=== PATIENT | male | born 1935 | race Caucasian/White ===

== ENCOUNTER 2016-11-03 14:18 | Inpatient (IN) | payer MEDICARE, OTHER ==
[2016-11-03 14:39] LABS: Hematocrit 51 % (42-52); Hemoglobin 16.7 g/dl (14.0-18.0); Mean Corpuscular HGB Conc 33 g/dl (31-36); Mean Corpuscular Hemoglobin 31 pg (27-31); Mean Corpuscular Volume 94 fL (80-94); Mean Platelet Volume 9 um3 (7.4-10.4); Red Blood Count 5.41 10^6/ul (4.0-5.4); Red Cell Distribution Width 15 % (10.5-15); White Blood Count 8.4 10^3/ul (3.5-10.8)
[2016-11-03] MEDS ORDERED: Magnesium Sulfate 2 GM IV* 2 GM/50 ML BAG IVPB ONE (14:52)
[2016-11-03] MEDS ORDERED: Amiodarone 360 MG IVPREMIX* 360 MG/200 ML BAG IV ONE (14:55)
[2016-11-03 14:59] LABS: Albumin 4.2 g/dL (3.2-5.2); BUN/Creatinine Ratio 20.2 (8-20); Calcium 9.9 mg/dL (8.6-10.3); EGFR African American 93.5 (>60); EGFR Non-African American 72.7 (>60); Magnesium 1.9 mg/dL (1.9-2.7); Potassium 4.8 mmol/L (3.5-5.0); Total Bilirubin 1.7 mg/dL (0.2-1.0); Total Protein 7.2 g/dL (6.4-8.9)
--- NOTE | 2016-11-03 15:01 | ED ---
HPI Cardiac - HPI Summary HPI Summary: Pt presents by EMS. 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 Pt care is through [facility] and [facility]. Pt states he woke approx 2 am with discomfort and "funny feeling" in his chest. Pt states he progressively felt SOB and "it got bad" so notified who called EMS. pt found in [facility] by EMS - rate 150. Pt was given 2 boluses (150mg each) of amiodarone with conversion. Pt states feels better at time of presentation. pt denies cp, sob. No n/v. Pt did not take his meds this morning, but took all medication yesterday. Pt states is on Eliquis. - History of Current Complaint Chief Complaint: EDDysrhythmPalp Stated Complaint: RAPID HEART RATE Time Seen by Provider: 11/03/16 14:32 Hx Obtained From: Patient, Family/Trim Machine Operator, EMS Onset/Duration: Started Hours Ago Timing: Constant Initial Severity: Moderate Current Severity: None Chest Pain Radiates: No Aggravating Factor(s): Nothing Alleviating Factor(s): Nothing Associated Signs and Symptoms: Positive: Chest Pain. Negative: Diaphoresis, Nausea, Cough - Allergy/Home Medications Allergies/Adverse Reactions: Allergies Allergy/AdvReac Type Severity Reaction Status Date / Time No Known Allergies Allergy Verified 11/03/16 14:25 PMH/Surg Hx/FS Hx/Imm Hx Endocrine/Hematology History: Reports: Hx Anticoagulant Therapy Cardiovascular History: Reports: Hx Hypercholesterolemia, Hx Hypertension Respiratory History: Denies: Hx Asthma, Hx Chronic Obstructive Pulmonary Disease (COPD) Musculoskeletal History: Denies: Hx Arthritis Neurological History: Denies: Hx CVA Psychiatric History: Denies: Hx Anxiety Infectious Disease History: No Infectious Disease History: Denies: Traveled Outside the [place] in Last 30 Days - Social History Alcohol Use: None Substance Use Type: Reports: None Smoking Status (MU): Former Smoker Review of Systems Constitutional: Negative Eyes: Negative ENT: Negative Cardiovascular: Negative Positive: Chest Pain. Negative: Palpitations Positive: Shortness Of Breath Gastrointestinal: Negative Genitourinary: Negative Musculoskeletal: Negative Skin: Negative Neurological: Negative Negative: Weakness Psychological: Normal All Other Systems Reviewed And Are Negative: Yes Physical Exam Triage Information Reviewed: Yes Vital Signs On Initial Exam: Initial Vitals Temp Pulse Resp BP Pulse Ox 97.9 F 79 23 186/133 99 11/03/16 14:25 11/03/16 14:25 11/03/16 14:25 11/03/16 14:25 11/03/16 14:25 Vital Signs Reviewed: Yes Appearance: Positive: Well-Appearing, No Pain Distress, Well-Nourished Skin: Positive: Warm, Skin Color Reflects Adequate Perfusion, Dry Head/Face: Positive: Normal Head/Face Inspection Eyes: Positive: Normal ENT: Positive: Pharynx normal, TMs normal Neck: Positive: Supple, Nontender, No Lymphadenopathy Respiratory/Lung Sounds: Positive: Clear to Auscultation Cardiovascular: Positive: Normal, RRR, Murmur, Other - 1+ edema b/l LE Abdomen Description: Positive: Nontender, No Organomegaly, Soft Bowel Sounds: Positive: Present Musculoskeletal: Positive: Normal, Strength/ROM Intact Neurological: Positive: Normal, Alert, Oriented to Person Place, Time Diagnostics - Vital Signs Vital Signs Temp Pulse Resp BP Pulse Ox 11/03/16 14:33 78 23 180/115 98 11/03/16 14:27 21 11/03/16 14:26 186/133 11/03/16 14:25 97.9 F 79 23 186/133 99 - Laboratory Lab Results: Lab Results 11/03/16 Range/Units 14:32 WBC 8.4 (3.5-10.8) 10^3/ul RBC 5.41 H (4.0-5.4) 10^6/ul Hgb 16.7 (14.0-18.0) g/dl Hct 51 (42-52) % MCV 94 (80-94) fL MCH 31 (27-31) pg MCHC 33 (31-36) g/dl RDW 15 (10.5-15) % Plt Count 131 L (150-450) 10^3/ul MPV 9 (7.4-10.4) um3 Neut % (Auto) 85.1 H (38-83) % Lymph % (Auto) 7.5 L (25-47) % Kemper % (Auto) 6.6 (1-9) % Eos % (Auto) 0.5 (0-6) % Baso % (Auto) 0.3 (0-2) % Absolute Neuts (auto) 7.2 (1.5-7.7) 10^3/ul Absolute Lymphs (auto) 0.6 L (1.0-4.8) 10^3/ul Absolute Monos (auto) 0.6 (0-0.8) 10^3/ul Absolute Eos (auto) 0 (0-0.6) 10^3/ul Absolute Basos (auto) 0 (0-0.2) 10^3/ul Absolute Nucleated RBC 0 10^3/ul Nucleated RBC % 0 Result Diagrams: 11/03/16 14:32 11/03/16 14:32 Lab Statement: Any lab studies that have been ordered have been reviewed, and results considered in the medical decision making process. - Radiology No standard instances Xray Interpretation: Positive (See Comments) - Patient Name: JAM MONROE Medical Record#: [id number] Ordering Physician: Natalia Tapia MD Acct.#: [id number] : 1935 Age: 81 Sex: M Location: EMERGENCY DEPARTMENT Exam Date: 11/03/16 1433 ADM Status: REG ER Order Information: CHEST AP PORTABLE Accession Number: [id number] CPT: 69454 HISTORY: Chest pain, rapid heart rate COMPARISONS: None VIEWS:1: Single frontal portable view of the chest at 2 :45 PM FINDINGS: LINES AND TUBES: A left-sided pacemaker is noted CARDIOMEDIASTINAL SILHOUETTE: The cardiac silhouette is enlarged. The cardiomediastinal silhouette is otherwise normal for portable technique. PLEURA : The costophrenic angles are sharp. No pleural abnormalities are noted. LUNG PARENCHYMA: The lungs are clear. ABDOMEN: The upper abdomen is clear. There is no subphrenic gas. BONES AND SOFT TISSUES: The patient is status post median sternotomy. IMPRESSION: CARDIOMEGALY <Electronically signed by Carlos Ledbetter MD in OV> 1502 Dictated By: Carlos Ledbetter MD Dictated Date/Time: 11/03/16 1502 Transcribed Date/Time: 11/03/16 1501 Copy to: [ rep ct ivnm] - EKG No standard instances Cardiac Rate: Other Rate - 14:18 paced, 84 review of pre-hospital strips reveal v tach Re-Evaluation - Re-Evaluation First Eval Re-Evaluation Time: 15:45 Change: Improved - pt sleeping VSS awaiting call back Dr. Gomez updated Disposition - Course Assessment/Plan: Pt presents s/p medical cardioversion with Vtach. Pt started with chest discomfort and sob at 2am. Pt without current complaints. Will check labs, CXR. continue with amiodarone drip. presumptively give mag. d/w card - Differential Dx - Cardiopulmonary Differential Diagnoses - Cardiopulmonary: Acute Coronary - Diagnoses Provider Diagnoses: Ventricular tachycardia - Physician Notifications Discussed Care Of Patient With: Dr Gomez paged [phone] - in procedure. 1600 d/w Dr. Gomez - will see pt. 1648 - Dr. Gomez d/w Dr. Rosas will admit Discharge - Discharge Plan Condition: Stable Disposition: ADMITTED TO [facility]
--- NOTE | 2016-11-03 15:05 | RAD ---
HISTORY: Chest pain, rapid heart rate COMPARISONS: None VIEWS:1: Single frontal portable view of the chest at 2:45 PM FINDINGS: LINES AND TUBES: A left-sided pacemaker is noted CARDIOMEDIASTINAL SILHOUETTE: The cardiac silhouette is enlarged. The cardiomediastinal silhouette is otherwise normal for portable technique. PLEURA: The costophrenic angles are sharp. No pleural abnormalities are noted. LUNG PARENCHYMA: The lungs are clear. ABDOMEN: The upper abdomen is clear. There is no subphrenic gas. BONES AND SOFT TISSUES: The patient is status post median sternotomy. IMPRESSION: CARDIOMEGALY
[2016-11-03 15:15] LABS: Troponin I 0.12 ng/mL (<0.04)
[2016-11-03 15:25] LABS: TSH (Thyroid Stimulating Horm) 1.49 mcIU/mL (0.34-5.60)
[2016-11-03 16:50] LABS: Digoxin 0.5 ng/ml (0.8-2.0)
[2016-11-03] MEDS ORDERED: Labetalol IV* 5 MG/ML 20 ML VIAL IV PUSH ONE (17:12)
[2016-11-03] MEDS ORDERED: Dextrose 50% Syringe 50 ML* 25 GM/50 ML SYRINGE IV PUSH PRN (17:40)
[2016-11-03 18:00] LABS: Troponin I 0.75 ng/mL (<0.04)
[2016-11-03] MEDS: Carvedilol TAB* 25 MG PO SCH (20:32)
--- NOTE | 2016-11-03 20:41 | CONS ---
CARDIOLOGY CONSULTATION: DATE OF CONSULTATION: 11/03/16 INDICATION FOR CONSULTATION: Ventricular tachycardia. HISTORY: The patient is an 81-year-old gentleman with a history of mitral valve surgery x3. He was brought to the emergency room because of ventricular tachycardia. The patient states he was at home. He was feeling unwell. He could not give a specific symptom. He did not have any lightheadedness or dizziness. He did not have any syncope. He denied any angina. He just did not feel well. He felt a little bit diaphoretic and slightly nauseous. This lasted for approximately an hour and then his decided to call the ambulance. On arrival of the ambulance, the patient was in monomorphic ventricular tachycardia at 180 beats per minute. The patient was awake and alert with that. The patient received 2 boluses of amiodarone of 150 mg each and converted to a paced rhythm at 70 beats per minute. The patient was then transferred to the emergency room. Since then, he has not had any symptoms. PAST MEDICAL HISTORY: The patient has had a mitral valve surgery. His first surgery was in 1999. He had a mitral valve replacement at that time secondary to endocarditis. He then had a dehiscence of his mitral valve and a repeat surgery in 2003 and another surgery in 2009. Before his mitral valve surgery in 2009, a cardiac catheterization showed no coronary artery disease. The patient has chronic atrial fibrillation. The patient has a pacemaker and with a [employer]tronic pacemaker. The generator was changed within the last 2 years. OUTPATIENT MEDICATIONS: 1. Eliquis 5 mg twice a day. 2. Lisinopril 20 mg a day. 3. Coreg 25 mg b.i.d. 4. Glyburide 4 mg a day. 5. Potassium 20 mEq a day. 6. Lasix 80 mg a day. 7. Digoxin 125 mcg a day. 8. Omeprazole 20 mg a day. 9. Allopurinol. ALLERGIES: No known drug allergies. SOCIAL HISTORY: He is . He is a retired pharmacist. He denies tobacco or alcohol use. FAMILY HISTORY: No family history of early coronary artery disease or cardiac arrhythmias. REVIEW OF SYSTEMS: Negative for changes in bowel or bladder. Negative for fevers. Negative for changes in weight. PHYSICAL EXAMINATION: Height is 5 feet 10 inches, weight is 225 pounds, heart rate is 70, blood pressure is 125/80, respiratory rate is 18, oxygen saturation 100% on 2 L. Sclerae anicteric. Oropharynx is pink without erythema. Carotids are 2+ without bruits. JVD is normal. Thyroid is normal. Cardiac: S1, S2 with very distant heart sounds. There were no obvious murmurs, rubs, or gallops. Lungs have mildly decreased breath sounds at the bases. There is no dullness to percussion. There are no rhonchi or wheezes. Abdomen is obese, soft , nontender, nondistended with normoactive bowel sounds. Extremities show 1+ edema. He has 2+ pulses throughout. The patient is awake and alert and oriented. He moves all 4 extremities equally. LABORATORY STUDIES: Chemistry is within normal limits. BUN 20, creatinine 0.99. CBC within normal limits. BNP 83. TSH 1.49. Baseline EKG demonstrates atrial fibrillation, ventricularly paced at 80 beats per minute. IMPRESSION: This is an 81-year-old gentleman with a history of multiple mitral valve surgeries, who was admitted to the hospital because of ventricular tachycardia. The patient was started on amiodarone in the field and converted to a paced rhythm on his own. He did not require defibrillation. He did not have unstable ventricular tachycardia. My feeling is that his ventricular tachycardia is mostly due to scar tissue. I think less likely is due to ischemia. My recommendation is to continue the amiodarone load that was started in the emergency room. The patient will undergo a pacemaker interrogation, echocardiogram, and cardiac catheterization for evaluation of his ventricular tachycardia. Further care of his medical needs is through the hospitalist service. CC: Dr. Pedrito Camejo, zipper setter lockstitch, [facility], [place], [place] * [id number]/[facility] #: [id number] [facility]
[2016-11-03] MEDS: Insulin LISPRO* 1 UNITS UNIT SUBCUT SCH (20:48)
[2016-11-03] MEDS: Nitroglycerin TAB 0.4 MG* 0.4 MG TAB ONE ×2 (21:05→21:15)
[2016-11-03] MEDS: Amiodarone 360 MG IVPREMIX* 360 MG/200 ML BAG IV SCH (21:22)
[2016-11-03 21:35] LABS: Troponin I 1.49 ng/mL (<0.04)
[2016-11-03] MEDS: Heparin VIAL(*) 5000 UNITS/ML VIAL (FIVE THOUSAND) SUBCUT SCH (21:57)
--- NOTE | 2016-11-03 22:55 | HP ---
HISTORY AND PHYSICAL: DATE OF ADMISSION: 11/03/16 PRIMARY MACHINE OPERATOR PACKAGING: Dr. Galarza. CHIEF COMPLAINT: Chest aching. HISTORY OF PRESENT ILLNESS: Mr. Prince is an 81-year-old man with a past medical history of AFib, on Eliquis, status post pacemaker placement; history of endocarditis with porcine mitral valve replacement and subsequent surgeries x2 for dehiscence; diabetes; and GERD, who reports waking up this morning with chest pain and shortness of breath. History from the patient is a little disorganized; however, it seems that he was sleeping last night and awoke up at some point this morning stating that his chest was "aching." He also states that he felt terrible and somewhat dizzy. He said the chest pain did not radiate; however, he does have associated shortness of breath. He awoke his up and she initially told him to try just going back to sleep and he continued to sleep on and off; however, the pain and discomfort was persistent. Later in the morning, his who has a stethoscope at home, listened to his heart and noticed it was very fast and "banging." At this point, she called EMS. On arrival, EMS noted after hooking the patient to monitor that he was in ventricular tachycardia. He received 2 doses of 150 mg of IV amiodarone with subsequent transition back to his baseline atrial fibrillation with ventricular pacing. The patient states overall he has been feeling okay lately. Occasionally, he has days where he does not feel that well, but has noted no recent fever, chills, nausea, vomiting, abdominal pain, diarrhea, constipation, or dysuria. He has been having good p.o. intake. His states that since his last mitral valve surgery in 2009, he has been doing quite well. He had a catheterization, which he thinks may have been in 2009 that reportedly had clean coronaries at that time. PAST MEDICAL HISTORY: Mitral valve endocarditis, status post surgery x3; AFib, on Eliquis; pacemaker placement; diabetes; and GERD. PAST SURGICAL HISTORY: Mitral valve replacement with a porcine valve with 2 additional surgeries for dehiscence, the last in 2009; pacemaker placement; cholecystectomy; and eye surgery. HOME MEDICATIONS: 1. Eliquis 5 mg 2 times daily. 2. Lasix 80 mg by mouth daily. 3. Glimepiride 4 mg by mouth daily. 4. Digoxin 0.125 mg by mouth daily. 5. Folic acid 1 mg by mouth daily. 6. Lisinopril 20 mg by mouth daily. 7. Omeprazole 20 mg by mouth daily. 8. Potassium chloride 20 mEq by mouth daily. 9. Allopurinol 300 mg by mouth daily. 10. Multivitamin 1 tablet by mouth daily. 11. Coreg 25 mg by mouth 3 times daily. ALLERGIES: The patient has no known drug allergies. FAMILY HISTORY: He reports are none. SOCIAL HISTORY: The patient is a former smoker. He thinks he smoked for about 5 years, less than a pack a day. Denies any alcohol or illicit drug use. REVIEW OF SYSTEMS: A 12-point review of systems is negative except for that noted in the HPI. PHYSICAL EXAMINATION GENERAL: The patient is an elderly obese man, lying in bed, in no apparent distress. VITAL SIGNS: On admission temperature 97.9, heart rate of 79, respiratory rate of 23, O2 saturation of 99% on 4 L, and initial blood pressure 186/133. HEENT: Pupils are equal, round, and reactive to light and accommodation. Anicteric sclerae. Moist mucous membranes. No cervical adenopathy. LUNGS: Mostly clear to auscultation bilaterally, maybe some scattered rales in the bases. No wheezing appreciated. CARDIOVASCULAR: Irregularly irregular. No murmurs, gallops, or rubs. ABDOMEN: Obese. Ventral hernia. Soft, nontender, and nondistended. Bowel sounds positive. EXTREMITIES: No cyanosis, clubbing, or edema. NEUROLOGIC: The patient is alert and oriented x3. No focal neurological deficits. SKIN: Warm, dry, and well perfused. DIAGNOSTIC STUDIES/LAB DATA: White blood cell count of 8.4, hematocrit of 51, and platelets of 131. INR of 0.98. Sodium of 136, potassium of 4.8, chloride of 99, carbon dioxide of 30, BUN of 20, creatinine of 0.99, glucose of 216, and magnesium of 1.9. Total bilirubin of 1.7, AST of 75, and ALT of 84. CK of 52 and CK-MB of 4.2. Troponin of 0.12. B-natriuretic peptide of 83. TSH of 1.49. Digoxin of 0.5. EKG from here shows AFib with a ventricularly paced rhythm. Chest x-ray personally viewed shows cardiomegaly, no acute changes. EMS strip shows ventricular tachycardia with a heart rate of around 170 to 180. ASSESSMENT AND PLAN: Sustained ventricular tachycardia in an 81-year-old male with a past medical history of atrial fibrillation, on Eliquis; endocarditis, status post multiple mitral valve surgeries; diabetes; and gastroesophageal reflux disease. 1. Sustained ventricular tachycardia: Appreciate Cardiology input. The patient has been back in his baseline rhythm after receiving IV amiodarone en route to the hospital. We will complete amiodarone load with 1 mg a minute for the next 6 hours and followed by 0.5 mg per minute over the next 18 hours. We will order an echocardiogram. Dr. Gomez will arrange for a pacemaker interrogation. He will also contact Dr. Ruby regarding possible cardiac catheterization for tomorrow. The patient's home Eliquis will be held. He will be made n.p.o. after midnight. We will continue his home beta fiona. 2. Atrial fibrillation: Continue home Coreg and digoxin, holding Eliquis for now. 3. Hypertension: BPs are elevated in the emergency department. We will give a one-time of labetalol. Continue the patient's home lisinopril and Coreg. 4. Gastroesophageal reflux disease: Continue PPI. 5. Diabetes: Humalog insulin sliding scale. We will hold the patient's home glimepiride. 6. Elevated troponin: Likely demand-mediated due to the patient's ventricular tachycardia. He is currently chest pain free. We will check another one now to ensure it is trending down. CK and CK-MB are within normal limits. 7. DVT prophylaxis: Heparin subcu. 8. Code status: The patient is a full code. TIME SPENT: Total time spent on this admission 50 minutes with over half the time spent [id number] with the patient, counseling, and coordinating care. [id number]/[facility] #: [id number] LACY
[2016-11-03] MEDS ORDERED: NS 0.9% 1000 ML* 1,000 ML IV SCH (23:59)
[2016-11-04] MEDS ORDERED: Nitroglycerin TAB 0.4 MG* 0.4 MG TAB ONE (03:22)
[2016-11-04 06:00] LABS: Hematocrit 45 % (42-52); Hemoglobin 14.9 g/dl (14.0-18.0); Mean Corpuscular HGB Conc 33 g/dl (31-36); Mean Corpuscular Hemoglobin 31 pg (27-31); Mean Corpuscular Volume 93 fL (80-94); Mean Platelet Volume 9 um3 (7.4-10.4); Red Blood Count 4.87 10^6/ul (4.0-5.4); Red Cell Distribution Width 15 % (10.5-15); White Blood Count 9.7 10^3/ul (3.5-10.8)
[2016-11-04 06:15] LABS: Albumin 3.7 g/dL (3.2-5.2); BUN/Creatinine Ratio 19.6 (8-20); Calcium 9.1 mg/dL (8.6-10.3); EGFR African American 85.5 (>60); EGFR Non-African American 66.5 (>60); Globulin 2.7 g/dL (2-4); Potassium 4.1 mmol/L (3.5-5.0); Total Bilirubin 0.9 mg/dL (0.2-1.0); Total Protein 6.4 g/dL (6.4-8.9)
[2016-11-04 06:19] LABS: Troponin I 1.58 ng/mL (<0.04)
[2016-11-04] MEDS: Heparin VIAL(*) 5000 UNITS/ML VIAL (FIVE THOUSAND) SUBCUT SCH ×3 (06:34→22:00)
[2016-11-04] MEDS: Amiodarone 360 MG IVPREMIX* 360 MG/200 ML BAG IV SCH (07:56)
[2016-11-04] MEDS: Insulin LISPRO* 1 UNITS UNIT SUBCUT SCH ×3 (08:17→18:14)
[2016-11-04] MEDS: Omeprazole CAP* 20 MG PO SCH (09:00)
[2016-11-04] MEDS: Carvedilol TAB* 25 MG PO SCH ×2 (09:00→17:57)
[2016-11-04] MEDS: Multivitamins/Minerals TAB PO SCH (09:00)
[2016-11-04] MEDS ORDERED: Lisinopril TAB* 10 MG PO SCH (09:00)
[2016-11-04] MEDS: Folic Acid TAB* 1 MG PO SCH (09:01)
[2016-11-04] MEDS: Digoxin TAB* 0.125 MG PO SCH (09:01)
[2016-11-04] MEDS: Allopurinol TAB* 300 MG PO SCH (09:53)
--- NOTE | 2016-11-04 10:20 | ECHO ---
Patient: JAM MONROE [facility] Rec#: [id number] : 1935 Date: 11/04/2016 Age: 81y Height: 177.8 cm / 70.0 in Weight: 113.4 kg / 249.9 lbs Sex: M BSA: 2.29 Room#: [facility] Admit Date#: 11/03/2016 Type: Inpatient Referring: DANA SPRINGER MD Reading: Bernarda Allen MD Heel Edge Inker Machine: Laxmi Thornton [facility] Transthoracic Echocardiogram BP: 168/107 HR: 69 Rhythm: Paced Findings History: S/P MV replacement with porcine valve per pt'swife, s/p pacer. To Ed 11/03/16 with V-tach. Technical Comments: The study is technically limited due to patient body habitus. Completed at 0857. Left Ventricle: Moderate concentric left ventricular hypertrophy is observed. Septal wall hypertrophy is observed.(additional) There is global hypokinesis of the left ventricle with minor regional variation. There is moderately decreased left ventricular systolic function. The estimated ejection fraction is 35-40%. Post surgical hypokinesis of the interventricular septum is observed consistent with valve replacement. There is abnormal ventricular septal wall motion consistent with right ventricular pacemaker. The assessment of diastolic function is non-diagnostic. Left Atrium: The left atrium is moderate to severely dilated. Right Ventricle: The right ventricle is moderately dilated. The right ventricular global systolic function is normal. The septum has abnormal paradoxical motion consistent with RV pacemaker. A pacemaker wire is visualized in the right ventricle. Right Atrium: The right atrium is moderate to severely dilated. A pacemaker wire is visualized in the right atrium. Aortic Valve: There is moderate thickening of the non coronary cusp. Moderate aortic leaflet calcification is visualized. Systolic excursion of the aortic valve cusps is reduced. Mild aortic cusp sclerosis is present. There is no evidence of aortic regurgitation. There is mild aortic stenosis. Mitral Valve: A porcine bioprosthetic mitral valve is present. The bioprosthetic mitral valve appears to be functioning normally. Tricuspid Valve: The tricuspid valve leaflets are normal. There is mild to moderate tricuspid regurgitation. There is evidence of moderate to severe pulmonary hypertension. There is no tricuspid stenosis. Pulmonic Valve: The pulmonic valve appears normal. There is no evidence of pulmonic regurgitation. There is no pulmonic stenosis. Pericardium: A pericardial fat pad is visualized. Aorta: The ascending aorta is not well visualized. There is no dilatation of the aortic arch. There is mild dilatation of the aortic root. Conclusions The study is technically limited due to patient body habitus. Moderate concentric left ventricular hypertrophy is observed. There is global hypokinesis of the left ventricle with minor regional variation. There is abnormal ventricular septal wall motion consistent with right ventricular pacemaker and post op septum. The estimated ejection fraction is 40%. The right ventricle is moderately dilated. The right ventricular global systolic function is normal. The left atrium is moderate to severely dilated. The right atrium is moderate to severely dilated. There is mild aortic stenosis present: mean gradient 8 mmHg, GLENN 2 cm2, DI 0.48. The bioprosthetic mitral valve appears to be functioning normally. There is mild to moderate tricuspid regurgitation. There is evidence of moderate to severe pulmonary hypertension: 59 mHg. Prior echos not available at this time to compare. Measurements Name Value Normal Range RVIDd (AP) 2D 3.5 cm (0.9 - 2.6) RVDdMajor (2D) 5.4 cm (2.2 - 4.4) RAd ISD 4CH 6.6 cm (3.4 - 4.9) RA (A4C)W 4.9 cm (2.9 - 4.6) IVSd (2D) 1.8 cm (0.6 - 1) LVPWd (2D) 1.5 cm (0.6 - 1) LVIDd (2D) 3.6 cm (3.6 - 5.4) LVIDs (2D) 2.8 cm - LV FS (Teichholz) (2D) 22 % - Aortic Annulus 2.4 cm (1.4 - 2.6) Ao root diameter (2D) 3.9 cm (2.1 - 3.5) Aortic arch 2.2 cm (1.8 - 3.4) Descending Ao 0.3 cm - LA dimension (AP) 2D 6.2 cm (2.3 - 3.8) LAd ISD 4CH 5.9 cm (2.9 - 5.3) LA ISD 4CH W 5 cm (2.5 - 4.5) Name Value Normal Range LA ESV SP 4CH (A/L) 114 ml - LA ESV SP 2CH (A/L) 109 ml - LA ESV BP (A/L) 117 ml - LA ESV BP (A/L) index 50.86 ml/m2 - LA ESV SP 4CH (MOD) 112 ml - LA ESV SP 2CH (MOD) 101 ml - Name Value Normal Range MV E-wave Vmax 2.1 m/sec - MV deceleration time 229 msec - LV septal e' Vmax 0.04 m/sec - LV lateral e' Vmax 0.08 m/sec - LV E:e' septal ratio 52.5 ratio - LV E:e' lateral ratio 26.25 ratio - Name Value Normal Range AV Vmax 2.1 m/sec - AV VTI 35.7 cm - AV peak gradient 17.18 mmHg - AV mean gradient 7.93 mmHg - LVOT diameter 2.4 cm - LVOT Vmax 1.1 m/sec - LVOT VTI 17 cm - LVOT peak gradient 4.41 mmHg - LVOT mean gradient 1.86 mmHg - GLENN (continuity Vmax) 2.4 cm2 - GLENN (continuity VTI) 2 cm2 - Name Value Normal Range MV Vmax 2.1 m/sec - MV VTI 41.9 cm - MV peak gradient 18.26 mmHg - MV mean gradient 4.52 mmHg - MV PHT 51 msec - MVA (PHT) 4.4 cm2 - MVA (continuity VTI) 1.8 cm2 - Name Value Normal Range TR Vmax 3.3 m/sec - TR peak gradient 44 mmHg - RAP 15 mmHg - RVSP 59 mmHg - IVC diameter 2.8 cm - Name Value Normal Range PV Vmax 0.8 m/sec - PV peak gradient 2.3 mmHg -
[2016-11-04] MEDS ORDERED: Acetaminophen TAB* 325 MG PO PRN (11:21)
--- NOTE | 2016-11-04 14:58 | PN ---
Subjective Date of Service: 11/04/16 - CC: chest pressure awakening from sleep. Interval History: CC this AM was headache. No CP or SOB today. He states he is generally not feeling well. Medications Active Medications: Acetaminophen (Tylenol Tab*) 650 mg PO Q6H PRN PRN Reason: PAIN Last Admin: 11/04/16 11:33 Dose: 650 mg Allopurinol (Zyloprim Tab*) 300 mg PO DAILY [facility] Last Admin: 11/04/16 09:53 Dose: 300 mg Carvedilol (Coreg Tab*) 25 mg PO BID WITH MEALS [facility] Last Admin: 11/04/16 09:00 Dose: 25 mg Dextrose (D50w Syringe 50 Ml*) 12.5 gm IV PUSH .FOR FS < 60 - SS PRN PRN Reason: FS < 60 Digoxin (Lanoxin Tab*) 0.125 mg PO DAILY [facility] Last Admin: 11/04/16 09:01 Dose: 0.125 mg Folic Acid (Folvite Tab*) 1 mg PO DAILY [facility] Last Admin: 11/04/16 09:01 Dose: 1 mg Heparin Sodium (Porcine) (Heparin Vial(*)) 5,000 units SUBCUT Q8HR [facility] Last Admin: 11/04/16 13:50 Dose: 5,000 units Amiodarone HCl (Nexterone 360 Mg/200 Ml Ivpremix*) 360 mg in 200 mls @ 16.666 mls/hr IV .PER PROTOCOL [facility] PRN Reason: 0.5 MG/MIN Stop: 11/04/16 15:10 Last Admin: 11/04/16 07:56 Dose: 16.666 mls/hr Insulin Human Lispro (Humalog*) 0 - 10 units SUBCUT AC [facility] PRN Reason: Protocol Last Admin: 11/04/16 12:24 Dose: 2 unit Lisinopril (Prinivil Tab*) 20 mg PO DAILY [facility] Last Admin: 11/04/16 09:01 Dose: 20 mg Multivitamins/Minerals (Theragran/Minerals Tab*) 1 tab PO DAILY [facility] Last Admin: 11/04/16 09:00 Dose: 1 tab Omeprazole (Prilosec Cap*) 20 mg PO 0730 [facility] Last Admin: 11/04/16 09:00 Dose: 20 mg Objective Vital Signs: Temp Pulse Resp BP Pulse Ox 98.4 F 70 19 151/92 94 02/01/17 12:00 11/04/16 14:00 11/04/16 14:00 11/04/16 14:00 11/04/16 14:00 Oxygen Devices in Use Now: None Appearance: elderly obese male, lying at 30 degrees, no tachypnea or distress but appears uncomfortable, unable to easily sit up or role over for exam. Eyes: PERRLA Ears/Nose/Mouth/Throat: Clear Oropharnyx Neck: Trachea Midline, No Thyroid Enlargement, Masses Respiratory: Symmetrical Chest Expansion and Respiratory Effort, Clear to Auscultation Cardiovascular: RRR Abdominal: No Hepatosplenomegaly Skin: No Rash or Ulcers - mid line sternotomy scar and pacer scars (L) well healed. No cyanosis. Neurological: - - vague historian, trouble following commands. Lines/Tubes/Other Access: Clean, Dry and Intact Peripheral IV Laboratory Results: 11/04/16 05:50 11/04/16 05:50 INR (Anticoag Therapy) 0.98 (0.89-1.11) 11/03/16 14:32 APTT 31.2 seconds (26.0-36.3) 11/03/16 14:32 Total Bilirubin 0.90 mg/dL (0.2-1.0) 11/04/16 05:50 AST 44 U/L (13-39) H 11/04/16 05:50 ALT 59 U/L (7-52) H 11/04/16 05:50 Alkaline Phosphatase 61 U/L (34-104) 11/04/16 05:50 CK-MB (CK-2) 10.4 ng/mL (0.6-6.3) H 11/03/16 21:06 B-Natriuretic Peptide 83 pg/mL (-100) 11/03/16 14:32 Total Protein 6.4 g/dL (6.4-8.9) 11/04/16 05:50 Albumin 3.7 g/dL (3.2-5.2) 11/04/16 05:50 Globulin 2.7 g/dL (2-4) 11/04/16 05:50 Albumin/Globulin Ratio 1.4 (1-3) 11/04/16 05:50 TSH 1.49 mcIU/mL (0.34-5.60) 11/03/16 14:32 11/03/16 11/03/16 11/04/16 17:30 21:06 05:50 Troponin I 0.75 H* 1.49 H* 1.58 H* Diagnostic Imaging: ECHO: moderate decrease in LV systolic function, septal dysychrony, TR, PA pressure 60 mmHg. EKG Data: Pacer interogation: [employer] device, tachycardia c/w VT yesterday 13:06, V paces 99% of the time, episode initiated with PVC, 4 seconds, 195 bpm. Afib throughout on atrial lead electrograms. Assessment/Plan 81 yo male admitted after awakening +with c/o not feeling well, nausea, diaphoresis with VT on ECG/monitor s/p load of IV amiodarone, persistent non sustained episodes. Troponins mildly elevated. History of chronic atrial fibrillation, 99% V. paced, moderate CM, MV replacement, untreated MEMO (patient intolerance). Points of Discussion: VT: ischemic vs. non ischemic, agree with cardiac catheterization. If non ischemic, may be related to MEMO and/or cardiomyopathy from valve replacement and constant RV pacing. BiV ICD a potential consideration in addition to optimizing medical management. Troponins: CAD vs. VT induced. Afib: Post cath resume anticoagulation. MEMO: ideally treat. CM: continue/maximize medical management of BB, ACEI in addition to the above. With elevated BP could consider increasing lisinopril and/or adding aldactone.
--- NOTE | 2016-11-04 15:30 | PN ---
Subjective Date of Service: 11/04/16 Interval History: Patient seen this morning. Says she had a "rough night". Was difficult to sleep. Says he had some SOB overnight, some chest discomfort but not as severe as on admission. No palpitations. Family History: Unchanged from Admission Social History: Unchanged from Admission Past Medical History: Unchanged from Admission Objective Active Medications: Acetaminophen (Tylenol Tab*) 650 mg PO Q6H PRN Allopurinol (Zyloprim Tab*) 300 mg PO DAILY [facility] Carvedilol (Coreg Tab*) 25 mg PO BID WITH MEALS [facility] Dextrose (D50w Syringe 50 Ml*) 12.5 gm IV PUSH .FOR FS < 60 - SS PRN Digoxin (Lanoxin Tab*) 0.125 mg PO DAILY [facility] Folic Acid (Folvite Tab*) 1 mg PO DAILY [facility] Heparin Sodium (Porcine) (Heparin Vial(*)) 5,000 units SUBCUT Q8HR [facility] Insulin Human Lispro (Humalog*) 0 - 10 units SUBCUT AC [facility] Lisinopril (Prinivil Tab*) 20 mg PO DAILY [facility] Multivitamins/Minerals (Theragran/Minerals Tab*) 1 tab PO DAILY [facility] Omeprazole (Prilosec Cap*) 20 mg PO 0730 [facility] Vital Signs 11/03/16 11/03/16 11/03/16 16:30 17:00 17:19 Temperature Pulse Rate 70 71 Respiratory 20 20 Rate Blood Pressure 178/112 181/96 191/107 (mmHg) O2 Sat by Pulse 99 99 Oximetry 11/04/16 11/04/16 11/04/16 05:15 05:30 05:45 Temperature Pulse Rate 70 70 72 Respiratory 21 23 23 Rate Blood Pressure 161/99 157/99 176/104 (mmHg) O2 Sat by Pulse 97 96 96 Oximetry 11/04/16 11/04/16 11/04/16 11:00 11:15 11:30 Temperature Pulse Rate 70 70 70 Respiratory 22 21 21 Rate Blood Pressure 144/98 149/92 144/94 (mmHg) O2 Sat by Pulse 96 95 95 Oximetry 11/04/16 11/04/16 11/04/16 11:57 12:00 13:00 Temperature 98.4 F Pulse Rate 69 70 Respiratory 22 21 23 Rate Blood Pressure 153/91 150/94 (mmHg) O2 Sat by Pulse 96 91 Oximetry Oxygen Devices in Use Now: Nasal Cannula - 2L Appearance: Elderly, M, laying in bed in NAD Eyes: No Scleral Icterus Ears/Nose/Mouth/Throat: Mucous Membranes Moist Neck: NL Appearance and Movements; NL JVP Respiratory: Symmetrical Chest Expansion and Respiratory Effort, Clear to Auscultation Cardiovascular: NL Sounds; No Murmurs; No JVD, RRR Abdominal: - - Obese, soft, NT, mild distension, BS+ Lymphatic: No Cervical Adenopathy Extremities: - - Mild LE edema Skin: No Rash or Ulcers Neurological: Alert and Oriented x 3 Result Diagrams: 11/04/16 05:50 11/04/16 05:50 Additional Lab and Data: Microbiology and Other Data: Microbiology 11/03/16 16:25 Nasal Screen MRSA (PCR)(TAMIKA) - Final Nasal Mrsa Negative Assess/Plan/Problems-Billing Assessment: Sustained ventricular tachycardia, troponin elevation in an 81 yo M with hx of AFib on Eliquis, 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 Completing amiodarone load today. Do not think tachycardia overnight was recurrent VTach. Cath will be done 2/2. S/P PPM interrogation. Echo done, EF 35-40%, mod-severe pulm HTN, valve functioning normally. Dr. Allen to speak with Dr. Camejo ( outpatient spray blender). Will order CPAP here in hospital. (2) Elevated troponin Current Visit: Yes Comment: Troponins trending up. Likely demand mediated vs ACS. Trend to peak. No CP today. Cath as above (3) HTN (hypertension) Current Visit: Yes Comment: Continue Coreg 25 mg BID. Will increase Lisinopril to 40 mg PO daily. (4) Atrial fibrillation Current Visit: Yes Comment: Continue Coreg, Digoxin. Holding Eliquis. (5) GERD (gastroesophageal reflux disease) Current Visit: Yes Comment: Continue PPI (6) Diabetes Current Visit: Yes Comment: HISS (7) MEMO (obstructive sleep apnea) Current Visit: Yes Comment: Will order CPAP (8) DVT prophylaxis Current Visit: Yes Comment: HSQ
[2016-11-04] MEDS ORDERED: Lisinopril TAB* 10 MG PO ONE (15:33)
[2016-11-05] MEDS: Heparin VIAL(*) 5000 UNITS/ML VIAL (FIVE THOUSAND) SUBCUT SCH ×3 (05:36→22:11)
[2016-11-05 06:06] LABS: Hematocrit 43 % (42-52); Hemoglobin 14.1 g/dl (14.0-18.0); Mean Corpuscular HGB Conc 33 g/dl (31-36); Mean Corpuscular Hemoglobin 30 pg (27-31); Mean Corpuscular Volume 93 fL (80-94); Mean Platelet Volume 9 um3 (7.4-10.4); Red Blood Count 4.66 10^6/ul (4.0-5.4); Red Cell Distribution Width 15 % (10.5-15); White Blood Count 7.7 10^3/ul (3.5-10.8)
[2016-11-05] MEDS ORDERED: Aspirin TAB* 325 MG PO ONE (06:22)
[2016-11-05 06:27] LABS: BUN/Creatinine Ratio 21.1 (8-20); Calcium 9.2 mg/dL (8.6-10.3); EGFR African American 104.4 (>60); EGFR Non-African American 81.2 (>60); Potassium 3.8 mmol/L (3.5-5.0)
[2016-11-05] MEDS ORDERED: NS 0.9% 1000 ML* 1,000 ML IV SCH ×2 (06:30→09:45)
[2016-11-05] MEDS: Insulin LISPRO* 1 UNITS UNIT SUBCUT SCH ×3 (07:24→17:21)
[2016-11-05] MEDS: Lisinopril TAB* 10 MG PO SCH (07:29)
[2016-11-05] MEDS: Omeprazole CAP* 20 MG PO SCH (07:29)
[2016-11-05] MEDS: Carvedilol TAB* 25 MG PO SCH ×2 (07:29→16:13)
[2016-11-05] MEDS ORDERED: Midazolam* 1 MG/ML 5 ML VIAL (5 MG) ONE (07:59)
[2016-11-05] MEDS ORDERED: VERAPAMIL 2.5 MG/ML 4 ML VIAL ONE (07:59)
[2016-11-05] MEDS ORDERED: fentaNYL* 50 MCG/ML 2 ML VIAL (100 MCG VIAL) ONE (07:59)
[2016-11-05] MEDS ORDERED: nitroGLYCERIN DRIP* 250 ML ONE (07:59)
[2016-11-05] MEDS ORDERED: Heparin(*) 1000 UNIT/ML 10 ML VIAL CATH LAB IV ONE (07:59)
[2016-11-05] MEDS ORDERED: Lidocaine 1% INJ* 10 MG/ML 30 ML SDV ONE (07:59)
[2016-11-05] MEDS ORDERED: Iohexol 350 (CONTRAST) 200 ML MDV IV ONE (07:59)
[2016-11-05] MEDS ORDERED: Heparin 2 UNITS/ML IVPREMIX* 2,000 ML IV ONE (07:59)
[2016-11-05] MEDS ORDERED: Potassium Chlor TAB* 20 MEQ TAB.ER PO ONE (08:19)
[2016-11-05] MEDS: Digoxin TAB* 0.125 MG PO SCH (10:43)
[2016-11-05] MEDS: Spironolactone TAB* 25 MG PO SCH (10:43)
[2016-11-05] MEDS: Multivitamins/Minerals TAB PO SCH (10:44)
[2016-11-05] MEDS: Allopurinol TAB* 300 MG PO SCH (10:44)
[2016-11-05] MEDS: Folic Acid TAB* 1 MG PO SCH (10:44)
--- NOTE | 2016-11-05 14:01 | PN ---
Subjective Date of Service: 11/05/16 Interval History: NSVT overnight Patient seen this morning after cath. Reports feeling well today. Feels breathing is easier. No chest pain. Did not try to use CPAP overnight. states he had a machine at home but refused to use it in the past, he is agreeable to re-evaluation and fitting as outpatient. Family History: Unchanged from Admission Social History: Unchanged from Admission Past Medical History: Unchanged from Admission Objective Active Medications: Acetaminophen (Tylenol Tab*) 650 mg PO Q6H PRN Allopurinol (Zyloprim Tab*) 300 mg PO DAILY [facility] Carvedilol (Coreg Tab*) 25 mg PO BID WITH MEALS [facility] Dextrose (D50w Syringe 50 Ml*) 12.5 gm IV PUSH .FOR FS < 60 - SS PRN Digoxin (Lanoxin Tab*) 0.125 mg PO DAILY [facility] Folic Acid (Folvite Tab*) 1 mg PO DAILY [facility] Heparin Sodium (Porcine) (Heparin Vial(*)) 5,000 units SUBCUT Q8HR [facility] Sodium Chloride (Ns 0.9% 1000 Ml*) 1,000 mls @ 100 mls/hr IV .per rate [facility] Insulin Human Lispro (Humalog*) 0 - 10 units SUBCUT AC [facility] Lisinopril (Prinivil Tab*) 40 mg PO DAILY [facility] Multivitamins/Minerals (Theragran/Minerals Tab*) 1 tab PO DAILY [facility] Omeprazole (Prilosec Cap*) 20 mg PO 0730 [facility] Spironolactone (Aldactone Tab*) 50 mg PO DAILY [facility] Vital Signs 11/04/16 11/04/16 11/04/16 14:00 15:00 15:53 Temperature Pulse Rate 70 69 Respiratory 20 23 21 Rate Blood Pressure 151/92 153/88 (mmHg) O2 Sat by Pulse 94 97 Oximetry 11/04/16 11/04/16 11/04/16 16:00 17:00 18:00 Temperature 99 F Pulse Rate 72 70 69 Respiratory 21 23 19 Rate Blood Pressure 161/88 124/70 141/79 (mmHg) O2 Sat by Pulse 96 96 97 Oximetry 11/04/16 11/04/16 11/04/16 19:00 20:00 21:00 Temperature Pulse Rate 71 70 70 Respiratory 23 22 18 Rate Blood Pressure 142/83 130/80 136/89 (mmHg) O2 Sat by Pulse 92 91 98 Oximetry 11/04/16 11/04/16 11/04/16 22:00 23:00 23:38 Temperature Pulse Rate 70 69 70 Respiratory 19 24 24 Rate Blood Pressure 146/87 150/111 162/95 (mmHg) O2 Sat by Pulse 96 96 96 Oximetry 11/04/16 11/05/16 11/05/16 23:40 00:00 00:01 Temperature 98.3 F Pulse Rate 70 70 Respiratory 24 24 Rate Blood Pressure 160/100 (mmHg) O2 Sat by Pulse 95 95 Oximetry 11/05/16 11/05/16 11/05/16 00:13 01:00 02:00 Temperature Pulse Rate 70 70 70 Respiratory 25 19 17 Rate Blood Pressure 151/91 141/88 (mmHg) O2 Sat by Pulse 96 96 96 Oximetry 11/05/16 11/05/16 11/05/16 03:00 04:00 05:00 Temperature 98.4 F Pulse Rate 70 71 70 Respiratory 18 21 25 Rate Blood Pressure 155/98 163/101 169/108 (mmHg) O2 Sat by Pulse 96 95 96 Oximetry 11/05/16 11/05/16 11/05/16 06:00 06:56 07:00 Temperature Pulse Rate 69 70 Respiratory 24 24 19 Rate Blood Pressure (mmHg) O2 Sat by Pulse 97 95 Oximetry 11/05/16 11/05/16 11/05/16 07:27 08:00 09:33 Temperature 102.3 F 97.9 F Pulse Rate 70 73 Respiratory 26 22 Rate Blood Pressure 166/101 (mmHg) O2 Sat by Pulse 97 97 Oximetry 11/05/16 11/05/16 11/05/16 09:35 09:44 09:48 Temperature 97.9 F Pulse Rate 71 75 Respiratory 20 17 Rate Blood Pressure 136/87 (mmHg) O2 Sat by Pulse 94 96 Oximetry 11/05/16 11/05/16 11/05/16 09:56 09:59 10:00 Temperature Pulse Rate 72 71 70 Respiratory 20 24 22 Rate Blood Pressure 137/87 135/84 135/88 (mmHg) O2 Sat by Pulse 97 97 97 Oximetry 11/05/16 11/05/16 11/05/16 10:03 10:15 10:18 Temperature 97.9 F 97.1 F Pulse Rate 70 Respiratory 19 Rate Blood Pressure 142/89 (mmHg) O2 Sat by Pulse 96 Oximetry 11/05/16 11/05/16 11/05/16 10:30 10:43 10:48 Temperature 97.2 F Pulse Rate 72 70 Respiratory 22 Rate Blood Pressure 139/98 (mmHg) O2 Sat by Pulse 97 Oximetry 11/05/16 11/05/16 11/05/16 11:00 11:13 11:15 Temperature 97.7 F Pulse Rate 70 70 Respiratory 21 20 Rate Blood Pressure 139/101 143/84 (mmHg) O2 Sat by Pulse 95 97 Oximetry 11/05/16 11/05/16 11/05/16 11:30 11:35 11:45 Temperature 99.2 F Pulse Rate 69 70 Respiratory 18 18 Rate Blood Pressure 135/86 143/85 (mmHg) O2 Sat by Pulse 99 98 Oximetry 11/05/16 11/05/16 11/05/16 12:00 12:15 12:18 Temperature 97.5 F Pulse Rate 72 70 Respiratory 21 17 Rate Blood Pressure 145/85 140/82 (mmHg) O2 Sat by Pulse 98 98 Oximetry 11/05/16 11/05/16 11/05/16 12:30 12:45 13:00 Temperature Pulse Rate 70 70 76 Respiratory 18 17 19 Rate Blood Pressure 141/77 136/79 153/93 (mmHg) O2 Sat by Pulse 98 98 98 Oximetry 11/05/16 11/05/16 13:18 13:33 Temperature 98.0 F 98.0 F Pulse Rate Respiratory Rate Blood Pressure (mmHg) O2 Sat by Pulse Oximetry Oxygen Devices in Use Now: Nasal Cannula - 2L Appearance: Elderly, M, laying in bed in NAD Eyes: No Scleral Icterus Ears/Nose/Mouth/Throat: Mucous Membranes Moist Neck: NL Appearance and Movements; NL JVP Respiratory: Symmetrical Chest Expansion and Respiratory Effort, Clear to Auscultation Cardiovascular: NL Sounds; No Murmurs; No JVD, RRR Abdominal: - - Obese, soft, NT, mild distension, BS+ Lymphatic: No Cervical Adenopathy Extremities: - - Minimal LE edema Skin: No Rash or Ulcers Neurological: Alert and Oriented x 3 Result Diagrams: 11/05/16 05:57 11/05/16 05:57 Additional Lab and Data: Microbiology and Other Data: Assess/Plan/Problems-Billing Assessment: Sustained ventricular tachycardia, troponin elevation in an 81 yo M with hx of AFib on Eliquis, 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 S/P amiodarone load, will need to figure out oral dosing. Still having some NSVT. 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 S/P PPM interrogation. Echo done, EF 35-40%, mod- severe pulm HTN, valve functioning normally. ?need for BiV PPM/ICD. Refused CPAP. (2) Elevated troponin Current Visit: Yes Comment: Peaked, likely demand-medicated. Cath as above (3) HTN (hypertension) Current Visit: Yes Comment: Continue Coreg 25 mg BID, increased Lisinopril to 40 mg daily (11/04). Added spironolactone 11/05 (4) Atrial fibrillation Current Visit: Yes Comment: Continue Coreg, Digoxin. Holding Eliquis, may be able to restart on / (5) GERD (gastroesophageal reflux disease) Current Visit: Yes Comment: Continue PPI (6) Diabetes Current Visit: Yes Comment: HISS (7) MEMO (obstructive sleep apnea) Current Visit: Yes Comment: Should get outpatient re-evaluation/refitting (8) DVT prophylaxis Current Visit: Yes Comment: HSQ
[2016-11-05] MEDS ORDERED: Furosemide IV* 10 MG/ML 2 ML VIAL (20 MG) IV ONE (16:00)
[2016-11-05] MEDS: Amiodarone TAB* 200 MG PO SCH (22:11)
--- NOTE | 2016-11-06 03:22 | CATH ---
CARDIAC CATHETERIZATION REPORT: DATE OF PROCEDURE: 11/03/16 - ROOM #ICU-07 REASON FOR CARDIAC CATHETERIZATION: The patient presenting with sustained ventricular tachycardia with a history of multiple mitral valvular surgeries and chronic atrial fibrillation with moderate left ventricular systolic dysfunction, rule out the presence of coronary artery disease. PROCEDURE: Coronary arteriography and left heart catheterization. PROCEDURE IN DETAIL: The patient was examined and interviewed in the intensive care unit where the risks and benefits were explained. He and his understood them and wished to proceed. The patient was brought to the cardiovascular laboratory where a formal time-out was performed. Of note in the intensive care unit, his radial artery had been assessed for size and was found to be appropriate for a right radial artery approach. The patient was prepped and draped in sterile fashion including the right radial artery and both femoral arteries. The right radial artery was anesthetized with 1% lidocaine. The right radial artery was cannulated and a 6-American Glidesheath was placed. Initially, a Healy wire was attempted to be advanced to the ascending aorta; however, there was marked corkscrew tortuosity within the innominate artery. A Wholey wire was then utilized as well and with great difficulty the TIG catheter could advance into the upper portion of the descending aorta, but not well enough down to the coronary arteries. This approach was aborted. The right coronary was then anesthetized with 1% lidocaine. An attempt was made to place a 5-American sheath into the right femoral artery. We were not able to do this and as such this was exchanged for 6-American sheath, which was able to be placed into the right femoral artery. Coronary arteriography was performed utilizing a 5-American 4.5 curved left coronary catheter and a 5-American 4 curved right coronary catheter. An angled pigtail catheter was advanced to the ascending aorta where central aortic pressure was recorded. The catheter was then passed across the aortic valve into the left ventricle where left ventricular pressure was recorded. Left ventriculography was deferred in light of the patient already having had an echocardiogram performed. Following this, catheter was pulled back across the aortic valve to recheck gradient. At the end of the case, an injection was made into the right femoral sheath to assess eligibility to utilize closure device. It was found to be acceptable for this and as such a 5-American Mynx closure device was deployed with good hemostasis. A 6/7 American Mynx closure device was deployed with good hemostasis. The right radial artery sheath was removed and hemostasis was obtained with a radial artery band. The total contrast used was 70 cc of Omnipaque dye. The radiation exposure included 13.3 minutes of fluoro time. The air kerma was 1086 milligray. The DAP radiation was 7677 microgray per meter squared. RESULTS: HEMODYNAMIC DATA: Left heart catheterization - central aortic pressure was recorded at 143/97 with a mean of 118. Left ventricular pressure 140 over left ventricular end- diastolic pressure of 26. CORONARY ARTERIOGRAPHY: A. Right coronary artery - a dominant vessel supplying the PDA and multiple posterior left ventricular branches. There was mild tapering of the right coronary artery just prior to the PDA with minimal luminal reduction. No focal significant stenosis were seen. The degree of narrowing distally was at best 10 % to 15%. B. Left coronary artery: 1. Left main - the left main was somewhat long in nature with a minimal 10% to 15% proximal narrowing seen. 2. Left anterior descending artery - the artery traversed to the apical region supplying multiple diagonal branches. There was no significant stenosis seen throughout the course of the vessel. 3. Circumflex artery - a nondominant vessel with a trifurcation marginal branch followed by a thin first obtuse marginal branch and a larger size, but somewhat short third obtuse marginal branch followed by a large low-lying posterior left ventricular branch followed by a small posterior left ventricular branch of small caliber in length. There was no significant disease seen throughout the course of this vessel as well. OVERALL ASSESSMENT: Evidence of a decreased left ventricular diastolic compliance with increased left ventricular end diastolic pressure. No significant stenotic coronary artery disease to explain left ventricular systolic dysfunction. CC: Dr. Abbe Gomez; Dr. Pedrito Camejo, audit clerk in [facility], in [place], [place] * [id number]/[facility] #: [id number] [facility]
[2016-11-06 05:38] LABS: Hematocrit 42 % (42-52); Hemoglobin 13.9 g/dl (14.0-18.0); Mean Corpuscular HGB Conc 33 g/dl (31-36); Mean Corpuscular Hemoglobin 31 pg (27-31); Mean Corpuscular Volume 93 fL (80-94); Mean Platelet Volume 9 um3 (7.4-10.4); Red Blood Count 4.53 10^6/ul (4.0-5.4); Red Cell Distribution Width 15 % (10.5-15); White Blood Count 6.6 10^3/ul (3.5-10.8)
[2016-11-06 05:52] LABS: BUN/Creatinine Ratio 21.6 (8-20); Calcium 9.3 mg/dL (8.6-10.3); EGFR African American 107.2 (>60); EGFR Non-African American 83.3 (>60); Magnesium 1.9 mg/dL (1.9-2.7); Potassium 3.9 mmol/L (3.5-5.0)
[2016-11-06] MEDS: Heparin VIAL(*) 5000 UNITS/ML VIAL (FIVE THOUSAND) SUBCUT SCH ×2 (05:52→13:31)
[2016-11-06] MEDS: Insulin LISPRO* 1 UNITS UNIT SUBCUT SCH ×3 (08:06→16:58)
[2016-11-06] MEDS: Allopurinol TAB* 300 MG PO SCH (08:15)
[2016-11-06] MEDS: Carvedilol TAB* 25 MG PO SCH ×2 (08:15→16:58)
[2016-11-06] MEDS: Lisinopril TAB* 10 MG PO SCH (08:15)
[2016-11-06] MEDS: Omeprazole CAP* 20 MG PO SCH (08:15)
[2016-11-06] MEDS: Multivitamins/Minerals TAB PO SCH (08:16)
[2016-11-06] MEDS: Digoxin TAB* 0.125 MG PO SCH (08:16)
[2016-11-06] MEDS: Spironolactone TAB* 25 MG PO SCH (08:16)
[2016-11-06] MEDS: Amiodarone TAB* 200 MG PO SCH ×2 (08:16→20:24)
[2016-11-06] MEDS: Folic Acid TAB* 1 MG PO SCH (08:17)
[2016-11-06] MEDS ORDERED: Magnesium Oxide TAB* 400 MG PO ONE (08:22)
[2016-11-06] MEDS ORDERED: Potassium Chlor TAB* 20 MEQ TAB.ER PO ONE (08:22)
--- NOTE | 2016-11-06 09:24 | PN ---
Subjective Date of Service: 11/06/16 Interval History: Patient seen this morning. Sitting up in chair eating breakfast. No complaints. No SOB, chest pain/discomfort, palpitations. No fever or chills. Family History: Unchanged from Admission Social History: Unchanged from Admission Past Medical History: Unchanged from Admission Objective Active Medications: Acetaminophen (Tylenol Tab*) 650 mg PO Q6H PRN Allopurinol (Zyloprim Tab*) 300 mg PO DAILY [facility] Amiodarone HCl (Cordarone Tab*) 200 mg PO BID [facility] Carvedilol (Coreg Tab*) 25 mg PO BID WITH MEALS [facility] Dextrose (D50w Syringe 50 Ml*) 12.5 gm IV PUSH .FOR FS < 60 - SS PRN Digoxin (Lanoxin Tab*) 0.125 mg PO DAILY [facility] Folic Acid (Folvite Tab*) 1 mg PO DAILY [facility] Heparin Sodium (Porcine) (Heparin Vial(*)) 5,000 units SUBCUT Q8HR [facility] Sodium Chloride (Ns 0.9% 1000 Ml*) 1,000 mls @ 100 mls/hr IV .per rate [facility] Insulin Human Lispro (Humalog*) 0 - 10 units SUBCUT AC [facility] Lisinopril (Prinivil Tab*) 40 mg PO DAILY [facility] Multivitamins/Minerals (Theragran/Minerals Tab*) 1 tab PO DAILY [facility] Omeprazole (Prilosec Cap*) 20 mg PO 0730 [facility] Spironolactone (Aldactone Tab*) 50 mg PO DAILY [facility] Vital Signs 11/05/16 11/05/16 11/05/16 09:33 09:35 09:44 Temperature 97.9 F Pulse Rate 71 75 Respiratory 20 17 Rate Blood Pressure 136/87 (mmHg) O2 Sat by Pulse 94 96 Oximetry 11/05/16 11/05/16 11/05/16 09:48 09:56 09:59 Temperature 97.9 F Pulse Rate 72 71 Respiratory 20 24 Rate Blood Pressure 137/87 135/84 (mmHg) O2 Sat by Pulse 97 97 Oximetry 11/05/16 11/05/16 11/05/16 10:00 10:03 10:15 Temperature 97.9 F Pulse Rate 70 70 Respiratory 22 19 Rate Blood Pressure 135/88 142/89 (mmHg) O2 Sat by Pulse 97 96 Oximetry 11/05/16 11/05/16 11/05/16 10:18 10:30 10:43 Temperature 97.1 F Pulse Rate 72 70 Respiratory 22 Rate Blood Pressure 139/98 (mmHg) O2 Sat by Pulse 97 Oximetry 11/05/16 11/05/16 11/05/16 10:48 11:00 11:13 Temperature 97.2 F 97.7 F Pulse Rate 70 Respiratory 21 Rate Blood Pressure 139/101 (mmHg) O2 Sat by Pulse 95 Oximetry 11/05/16 11/05/16 11/05/16 11:15 11:30 11:35 Temperature 99.2 F Pulse Rate 70 69 Respiratory 20 18 Rate Blood Pressure 143/84 135/86 (mmHg) O2 Sat by Pulse 97 99 Oximetry 11/05/16 11/05/16 11/05/16 11:45 12:00 12:15 Temperature Pulse Rate 70 72 70 Respiratory 18 21 17 Rate Blood Pressure 143/85 145/85 140/82 (mmHg) O2 Sat by Pulse 98 98 98 Oximetry 11/05/16 11/05/16 11/05/16 12:18 12:30 12:45 Temperature 97.5 F Pulse Rate 70 70 Respiratory 18 17 Rate Blood Pressure 141/77 136/79 (mmHg) O2 Sat by Pulse 98 98 Oximetry 11/05/16 11/05/16 11/05/16 13:00 13:15 13:18 Temperature 98.0 F Pulse Rate 76 70 Respiratory 19 21 Rate Blood Pressure 153/93 158/96 (mmHg) O2 Sat by Pulse 98 97 Oximetry 11/05/16 11/05/16 11/05/16 13:30 13:33 13:45 Temperature 98.0 F Pulse Rate 71 71 Respiratory 21 23 Rate Blood Pressure 137/88 149/86 (mmHg) O2 Sat by Pulse 98 98 Oximetry 11/05/16 11/05/16 11/05/16 13:55 14:00 14:13 Temperature Pulse Rate 70 70 Respiratory 22 22 21 Rate Blood Pressure 139/82 (mmHg) O2 Sat by Pulse 98 98 Oximetry 11/05/16 11/05/16 11/05/16 14:15 14:18 14:30 Temperature 97.5 F Pulse Rate 71 70 Respiratory 19 24 Rate Blood Pressure 142/92 153/91 (mmHg) O2 Sat by Pulse 98 98 Oximetry 11/05/16 11/05/16 11/05/16 14:45 15:00 15:15 Temperature Pulse Rate 70 70 70 Respiratory 23 22 20 Rate Blood Pressure 151/91 147/95 153/99 (mmHg) O2 Sat by Pulse 97 98 98 Oximetry 11/05/16 11/05/16 11/05/16 15:18 15:30 15:45 Temperature 98.5 F Pulse Rate 73 72 Respiratory 24 20 Rate Blood Pressure 148/102 144/109 (mmHg) O2 Sat by Pulse 92 92 Oximetry 11/05/16 11/05/16 11/05/16 16:00 16:15 16:30 Temperature 97.4 F Pulse Rate 71 77 78 Respiratory 20 22 24 Rate Blood Pressure 157/93 168/102 117/59 (mmHg) O2 Sat by Pulse 93 92 90 Oximetry 11/05/16 11/05/16 11/05/16 16:45 16:49 17:00 Temperature 98.7 F Pulse Rate 73 70 Respiratory 23 25 Rate Blood Pressure 151/86 141/79 (mmHg) O2 Sat by Pulse 94 93 Oximetry 11/05/16 11/05/16 11/05/16 17:57 18:00 19:00 Temperature Pulse Rate 71 69 Respiratory 23 18 21 Rate Blood Pressure 137/85 136/84 (mmHg) O2 Sat by Pulse 94 94 Oximetry 11/05/16 11/05/16 11/05/16 20:00 20:03 21:00 Temperature 98.9 F Pulse Rate 71 70 69 Respiratory 22 21 19 Rate Blood Pressure 132/84 128/91 (mmHg) O2 Sat by Pulse 94 94 94 Oximetry 11/05/16 11/05/16 11/05/16 22:00 23:00 23:43 Temperature 98.7 F Pulse Rate 70 70 Respiratory 20 16 Rate Blood Pressure 143/88 145/94 (mmHg) O2 Sat by Pulse 94 94 Oximetry 11/06/16 11/06/16 11/06/16 00:00 00:01 01:00 Temperature Pulse Rate 70 71 69 Respiratory 21 21 21 Rate Blood Pressure 146/95 143/96 (mmHg) O2 Sat by Pulse 93 93 93 Oximetry 11/06/16 11/06/16 11/06/16 01:13 01:16 01:41 Temperature Pulse Rate 85 73 70 Respiratory 16 18 19 Rate Blood Pressure 179/133 160/111 159/88 (mmHg) O2 Sat by Pulse 91 94 91 Oximetry 11/06/16 11/06/16 11/06/16 02:00 03:00 04:00 Temperature 98.9 F Pulse Rate 70 70 72 Respiratory 18 20 18 Rate Blood Pressure 156/97 159/97 170/99 (mmHg) O2 Sat by Pulse 97 98 90 Oximetry 11/06/16 11/06/16 11/06/16 05:00 06:00 07:00 Temperature Pulse Rate 71 70 70 Respiratory 16 19 16 Rate Blood Pressure 148/80 168/101 160/98 (mmHg) O2 Sat by Pulse 99 98 98 Oximetry 11/06/16 11/06/16 11/06/16 08:00 08:16 09:00 Temperature 98.7 F Pulse Rate 70 71 73 Respiratory 18 24 Rate Blood Pressure 153/90 (mmHg) O2 Sat by Pulse 99 98 Oximetry 11/06/16 09:05 Temperature Pulse Rate 66 Respiratory 15 Rate Blood Pressure 159/96 (mmHg) O2 Sat by Pulse 98 Oximetry Oxygen Devices in Use Now: Nasal Cannula - 2L Appearance: Elderly, M, sitting in chair in NAD Eyes: No Scleral Icterus Ears/Nose/Mouth/Throat: Mucous Membranes Moist Neck: NL Appearance and Movements; NL JVP Respiratory: Symmetrical Chest Expansion and Respiratory Effort, Clear to Auscultation Cardiovascular: NL Sounds; No Murmurs; No JVD, RRR Abdominal: NL Sounds; No Tenderness; No Distention Lymphatic: No Cervical Adenopathy Extremities: No Edema Skin: No Rash or Ulcers, - - R groin site c/d/i Neurological: Alert and Oriented x 3 Result Diagrams: 11/06/16 05:25 11/06/16 05:25 Additional Lab and Data: Microbiology and Other Data: Assess/Plan/Problems-Billing Assessment: Sustained ventricular tachycardia, troponin elevation in an 81 yo M with hx of AFib on Eliquis, 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 S/P amiodarone load, now on Amiodarone 200 mg BID. No NSVT overnight. 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 S/P PPM interrogation. Echo done, EF 35-40%, mod-severe pulm HTN, valve functioning normally. ?need for BiV PPM/ICD. Refused CPAP. Keep K>4, Mg>2 (2) Elevated troponin Current Visit: Yes Comment: Peaked, likely demand-medicated. Cath as above (3) HTN (hypertension) Current Visit: Yes Comment: Continue Coreg 25 mg BID, increased Lisinopril to 40 mg daily (11/04). Added spironolactone 2/. Will discuss further therapy with Cardiology as BPs remain elevated. (4) Atrial fibrillation Current Visit: Yes Comment: Continue Coreg, Digoxin. Holding Eliquis, may be able to restart today (5) GERD (gastroesophageal reflux disease) Current Visit: Yes Comment: Continue PPI (6) Diabetes Current Visit: Yes Comment: HISS (7) MEMO (obstructive sleep apnea) Current Visit: Yes Comment: Should get outpatient re-evaluation/refitting (8) DVT prophylaxis Current Visit: Yes Comment: HSQ Status and Disposition: Transfer to
[2016-11-06] MEDS: amLODIPine TAB* 5 MG PO SCH (10:20)
[2016-11-06] MEDS: Apixaban* 5 MG TAB PO SCH (20:24)
[2016-11-07] MEDS: Digoxin TAB* 0.125 MG PO SCH (09:00)
[2016-11-07] MEDS: Lisinopril TAB* 10 MG PO SCH (09:00)
[2016-11-07] MEDS: Apixaban* 5 MG TAB PO SCH (09:00)
[2016-11-07] MEDS: Amiodarone TAB* 200 MG PO SCH (09:01)
[2016-11-07] MEDS: amLODIPine TAB* 5 MG PO SCH (09:01)
[2016-11-07] MEDS: Folic Acid TAB* 1 MG PO SCH (09:01)
[2016-11-07] MEDS: Allopurinol TAB* 300 MG PO SCH (09:01)
[2016-11-07] MEDS: Carvedilol TAB* 25 MG PO SCH (09:01)
[2016-11-07] MEDS: Multivitamins/Minerals TAB PO SCH (09:01)
[2016-11-07] MEDS: Spironolactone TAB* 25 MG PO SCH (09:01)
[2016-11-07] MEDS: Omeprazole CAP* 20 MG PO SCH (09:01)
[2016-11-07] MEDS: Insulin LISPRO* 1 UNITS UNIT SUBCUT SCH ×2 (09:01→12:35)
[2016-11-07 13:02] VITALS: BP 152/88
--- NOTE | 2016-11-08 00:48 | DS ---
DISCHARGE SUMMARY: DATE OF ADMISSION: 11/03/16 DATE OF DISCHARGE: 11/07/16 PRIMARY RULES EXAMINER: Jaison Menendez. PRIMARY DIAGNOSIS: Sustained ventricular tachycardia. SECONDARY DIAGNOSES: 1. Hypertension. 2. Atrial fibrillation. 3. Type 2 diabetes. 4. Elevated troponin. 5. Obstructive sleep apnea. PROCEDURES PERFORMED DURING THE HOSPITAL STAY: Radial left heart cath performed by Dr. Ruby without evidence of coronary artery disease. No interventions. MEDICATIONS ON DISCHARGE: 1. Carvedilol 25 mg twice daily. 2. Multivitamin 1 tab daily. 3. Allopurinol 300 mg daily. 4. Potassium chloride 20 mEq daily. 5. Prilosec 20 mg daily. 6. Folic acid 1 mg daily. 7. Digoxin 0.125 mg daily. 8. Glimepiride 4 mg daily. 9. Lasix 80 mg daily. 10. Eliquis 5 mg twice daily. 11. Lisinopril 40 mg daily, please note increased from 20 mg daily. 12. Amiodarone 200 mg daily, please note addition of a new medication. HISTORY OF PRESENT ILLNESS AND HOSPITAL COURSE: This is an 81-year-old man with past medical history as outlined in the history of present illness on the day of admission including atrial fibrillation, history of permanent pacemaker, history of endocarditis, porcine mitral valve replacement, subsequent surgeries x2, diabetes, GERD, has been in his usual state of health, woke up feeling dizzy with chest pain, actually the EMS found and ventricular tachycardia. He received amiodarone IV and was transitioned back to his atrial fibrillation with ventricular pacing. He underwent left heart cath for evaluation of underlying CAD with negative cath for underlying CAD. His blood pressure was high during the course of the hospital stay and he was started on Norvasc and lisinopril was up titrated. However, his Lasix was being held status post left heart cath. Norvasc will be discontinued as lisinopril will be continued at the higher dose and Lasix will be added back to his regimen on discharge. He notes that he has been on Lasix 80 mg daily for "a very long time." Attention to his kidney function should be made on discharge with followup BMP as indicated. He was fitted for and left with a LifeVest. He received in-service training for its use on the day of discharge in the presence of his . He felt comfortable leaving with the LifeVest. He did not use CPAP during the course of the hospital stay, declined its use, and is unlikely to continue as an outpatient. At followup, please; 1. Evaluate for stability, on amiodarone. 2. Evaluate kidneys as needed after resumption of Lasix, status post left heart cath with increased lisinopril dose. 3. Evaluate for continued use of LifeVest. 4. Evaluate blood pressure on aforementioned above blood pressure medications. 5. Evaluate cardiac function in the coming months with decision for placement of ICD and/or BiV permanent pacemaker. Reasons to return to the hospital including, but not limited to recurrent or worsening symptoms including chest pain, shortness of breath, nausea, vomiting, lightheadedness, dizziness, loss of conscious, near loss of consciousness, bleeding from any source, decreased urination, fevers, chills, night sweats were discussed with the patient and he acknowledged understanding. TIME SPENT: Greater than 60 minutes were spent discharging this patient, greater than half with [id number] with the patient. CC: Dr. Camejo * [id number]/[facility] #: [id number] [facility]ITAL[facility]um[facility]
--- NOTE | 2016-11-19 04:33 | CATH ---
ADDENDUM: * DATE OF THIS DICTATION: 11/18/16 DATE OF PROCEDURE: The stated date of the procedure was incorrect of 2016. The correct date for the procedure was 11/05/2016. CC: Dr. Pedrito Camejo; Abbe Gomez MD; Lauro Ruby MD * [id number]/[facility] #: [id number] MTDD
== END 2016-11-07 13:50 | disposition home or self-care (01) | DRG 287 ==
LOC: ED 14:18 → ICU 16:19 → MEDTELE 11-06 15:52
PROVIDERS: ADMIT Hospitalist; ATTEND Internal Medicine
PROC: B201YZZ Plain Radiography of Multiple Coronary Arteries using Other Contrast (ICD-10-PCS; 2016-11-05)
PROC: 4A023N7 Measurement of Cardiac Sampling and Pressure, Left Heart, Percutaneous Approach (ICD-10-PCS; principal; 2016-11-05 07:00)
DX: I47.2 Ventricular tachycardia (principal); E11.9 Type 2 diabetes mellitus without complications; I10 Essential (primary) hypertension; I48.91 Unspecified atrial fibrillation; G47.33 Obstructive sleep apnea (adult) (pediatric); R74.8 Abnormal levels of other serum enzymes; K21.9 Gastro-esophageal reflux disease without esophagitis; Z95.0 Presence of cardiac pacemaker; Z95.2 Presence of prosthetic heart valve; Z79.01 Long term (current) use of anticoagulants; Z79.899 Other long term (current) drug therapy; Z87.891 Personal history of nicotine dependence
CPT/HCPCS: 36415; 71010; 80048; 80053; 80162; 82550; 82553; 83735; 83880; 84443; 84484; 85025; 85610; 85730; 86850; 86900; 86901; 87641; 93005; 93306; 93458; 94760; A9270-GY; C1760; C1769; C1887; J0282; J1644; J1940; J2250; J3010; J3475